=== PATIENT | male | born 1970 | race Caucasian/White ===

== ENCOUNTER → 2021-05-01 | Outpatient (CLI) | payer MEDICARE | LOC: EMI 13:42 | DX: G35 Multiple sclerosis (principal); R56.9 Unspecified convulsions; R90.89 Other abnormal findings on diagnostic imaging of central nervous system | CPT/HCPCS: 70553; A9577 ==

== ENCOUNTER 2022-01-02 10:00 | Emergency (ER) | payer OTHER ==
[2022-01-02] MEDS ORDERED: ERYTHROMYCIN OP1 GM OP (12:51)
[2022-01-02] MEDS ORDERED: IBUPROFEN800 MG PO (12:51)
== END 2022-01-02 13:05 | disposition home or self-care (01) ==
LOC: ER1 10:00
DX: S13.4XXA Sprain of ligaments of cervical spine, initial encounter (principal); S05.01XA Injury of conjunctiva and corneal abrasion without foreign body, right eye, initial encounter; V49.9XXA Car occupant (driver) (passenger) injured in unspecified traffic accident, initial encounter
CPT/HCPCS: 70450; 72125; 72128; 72131; 99283

== ENCOUNTER → 2022-01-16 | Outpatient (CLI) | payer MEDICARE ==
[~2022-01-16] MED LIST: ERYTHROMYCIN OP1 GM OP; IBUPROFEN800 MG PO
== END ==
LOC: KOH-I 12:07
DX: M47.812 Spondylosis without myelopathy or radiculopathy, cervical region (principal)
CPT/HCPCS: 72040